=== PATIENT | male | born 1995 | race Caucasian/White ===

== ENCOUNTER 2017-05-28 21:40 | Emergency (ER) | payer MEDICAID ==
[~2017-05-28] VITALS: Ht 180.3 cm; Wt 59.0 kg
--- NOTE | 2017-05-28 21:51 | NUR ---
BIBA TO ER BED 5
[2017-05-28 21:52] VITALS: BP 126/78
[2017-05-28] MEDS ORDERED: NACL 0.9% 1,000 ML IV ONE (21:55)
[2017-05-28] MEDS ORDERED: fentaNYL 0.05 MG/ML VIAL IVP ONE (21:55)
[2017-05-28] MEDS ORDERED: LIDOCAINE 1% 500 MG/50 ML VIAL INJ ONE (22:00)
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
[2017-05-28] MEDS ORDERED: fentaNYL 0.05 MG/ML VIAL ONE (22:05)
--- NOTE | 2017-05-28 22:20 | NUR ---
PT RESTING IN BED, NO S/S OF DISTRESS, CURENTLY RECEIVING IV FLUIDS.
[2017-05-28] MEDS ORDERED: BACITRACIN OINT 500 UNITS/GM PKT TP ONE (22:28)
[2017-05-28 22:40] VITALS: BP 128/79
--- NOTE | 2017-05-28 22:40 | NUR ---
Patient discharged with v/s stable. Written and verbal after care instructions given and explained. Patient alert, oriented and verbalized understanding of instructions. Ambulatory with steady gait. All questions addressed prior to discharge. ID band removed. Patient advised to follow up with PMD OR HERE IN 48 HRS FOR WOUND RECHEK AND SUTURES REMOVAL IN 7 DAYS. Rx of MOTRIN AND AUGMENTIN given. Patient educated on indication of medication including possible reaction and side effects. Opportunity to ask questions provided and answered.
[2017-06-02 07:23] LABS: CHLAMYDIA TRACHOMATIS AMP DNA Negative (Negative)
== END 2017-05-28 22:40 | disposition home or self-care (01) ==
LOC: MED 21:40
DX: S61.511A Laceration without foreign body of right wrist, initial encounter (principal); V19.9XXA Pedal cyclist (driver) (passenger) injured in unspecified traffic accident, initial encounter; Y93.89 Activity, other specified; Y92.89 Other specified places as the place of occurrence of the external cause; Y99.8 Other external cause status
CPT/HCPCS: 12001; 36415; 73110; 87491; 96361; 96374; 99285; J2001; J3010; J7030; Q0092